=== PATIENT | male | born 1960 | race Caucasian/White ===

== ENCOUNTER 2020-08-01 14:41 | Emergency (ER) | payer MEDICARE, SELFPAY ==
[2020-08-01 14:53] VITALS: BP 112/74; PULSE 65; RESP 18; TEMP 36.7; O2SAT 97
[2020-08-01 14:56] VITALS: BP 112/74; PULSE 65; RESP 18; TEMP 36.7; O2SAT 97
--- NOTE | 2020-08-01 15:20 | ED.LOWEXIN ---
HPI - Extremity Injury (Lower) General Chief Complaint: Extremity Injury, Lower Stated Complaint: rt lower leg laceration Time Seen by Provider: 08/01/20 15:16 Source: patient and family Mode of arrival: ambulatory Limitations: no limitations History of Present Illness HPI Narrative: 60 years old white male presents with laceration at the right lower leg, 5 hours prior to arrival to the emergency room. Patient had a tetanus shot less than 5 years ago. Patient denies other injuries. Patient got injured by a trailer tail light while working on it. Related Data Allergies Allergy/AdvReac Type Severity Reaction Status Date / Time No Known Allergies Allergy Verified 08/01/20 14:56 Review of Systems Review of Systems: Narrative: CONSTITUTIONAL: Denies fever, chills, or sweats. EYES: Denies visual changes, redness, or discharge. ENT: Denies rhinorrhea, congestion, sore throat, or otalgia. CARDIOVASCULAR: Denies chest pain, palpitations, or edema. RESPIRATORY: Denies cough or dyspnea. GASTROINTESTINAL: Denies abdominal pain, nausea, vomiting, or diarrhea. GENITOURINARY: Denies dysuria or hematuria. SKIN: Denies rash or itching. MUSCULOSKELETAL: Denies back pain, joint pain, or myalgia. NEUROLOGIC: Denies headache, numbness, or weakness. PSYCHIATRIC: Denies anxiety or depression. [facility] Social History Social History Gender identity (if verbalized by the patient): Male Sexual Orientation (if Verbalized by the Patient): Straight or Heterosexual Exam Narrative: Exam Narrative: General appearance: Well-developed, well-nourished Skin: Normal color right lower leg showed skin tear/skin avulsion at the lateral side of right lower leg. No active bleeding. No other injuries. Head: Normocephalic, nontraumatic Eyes: Clear conjunctiva ENT: Oropharynx normal, ears normal, nose normal Neck: Supple, nontender Chest and respiratory: Airway patent, no respiratory distress, no accessory muscle use Heart: Regular rate/rhythm Abdomen: Soft, nontender, no organomegaly, quiet bowel sounds Vascular: Normal peripheral pulses, normal capillary refill. Musculoskeletal: Normal range of motion, nontender back Neurologic: Alert and oriented ?3, [employer] is normal as tested, no gross motor deficit Course Course Emergency Course: Improving Vital Signs Vital signs: Vital Signs Temperature 36.7 C 08/01/20 14:53 Pulse Rate 65 08/01/20 14:53 Respiratory Rate 18 08/01/20 14:53 Blood Pressure 112/74 08/01/20 14:53 Pulse Oximetry 97 08/01/20 14:53 Temperature 36.7 C 08/01/20 14:56 Pulse Rate 65 08/01/20 14:56 Respiratory Rate 18 08/01/20 14:56 Blood Pressure 112/74 08/01/20 14:56 Pulse Oximetry 97 08/01/20 14:56 Procedures Laceration Laceration 1: Date: 08/01/20 Time: 16:58 Site: lower extremity Side (If applicable): right Size (cm): 5 Description: flap and clean Depth: simple, single layer Local Anesthetic: lidocaine 1% and with epi Amount of anesthesia used (mL): 4 Pre-repair: wound explored ====== Skin Level ====== Skin layer closed with: steri strips Size (cm): 5-0 ====== Subcutaneous Layer ====== ====== Muscle Layer ====== ====== Tendon Layer ====== MDM - Extremity Injury (Lower) MDM Narrative Medical decision making narrative: Right lower extremity laceration, possible stitches versus Steri-Strips. Further plan to follow Critical Care Time Critical Care Time Critical Care Time: No Discharge Plan Discharge Clinical Impression: Avulsion of skin of right lower leg P
== END 2020-08-01 17:21 | disposition home or self-care (01) ==
PROVIDERS: Emergency Provider Emergency Medicine; PCP Physician Assistant
DX: S81.801A Unspecified open wound, right lower leg, initial encounter (principal); X58.XXXA Exposure to other specified factors, initial encounter
CPT/HCPCS: 99282

== ENCOUNTER 2022-01-08 16:59 | Emergency (ER) | payer MEDICARE, SELFPAY ==
[2022-01-08 17:19] VITALS: BP 102/66; PULSE 70; RESP 16; O2SAT 98
[2022-01-08] MEDS: FLUORESCEIN SOD 1 MG/STRIP (18:44)
[2022-01-08] MEDS: TETRACAINE HCL 0.5% OPHTH SOLN 4 ML BTL 1 DROP (18:45)
[2022-01-08] MEDS: DACRIOSE EYE IRRIGATION 118 ML BOTTLE (18:45)
--- NOTE | 2022-01-08 18:46 | ED.EYEPROB ---
HPI - Eye Problem General Chief complaint: Eye Problems Stated complaint: right eye pain x 3 days Time Seen by Provider: 01/08/22 17:54 Source: patient Mode of arrival: ambulatory Limitations: no limitations History of Present Illness HPI Narrative: 61-year-old with a history of COPD on steroid therapy here with complaints of left eye pain and irritation for last few days. States that he has been tearing constantly for past 1 day. He denies any trauma . 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 He states that there is foreign body sensation chief complaint: eye pain Onset (ago): day(s) (2) Duration: constant Location: right eye Eye Symptoms: burning and foreign body sensation Place: home Mechanism: none Severity: mild Associated symptoms: none Related Data Allergies Allergy/AdvReac Type Severity Reaction Status Date / Time No Known Allergies Allergy Verified 08/01/20 14:56 Review of Systems Review of Systems: All systems reviewed & are unremarkable except as noted in HPI and below Constitutional: Constitutional: Reports no additional constitutional complaints Eyes: Eyes: Reports as per HPI ENT: Reports system reviewed and no additional complaints, except as documented Cardiovascular: Cardiovascular: Reports no additional cardiovascular complaints Respiratory: Respiratory: Reports no additional respiratory complaints Gastrointestinal: Gastrointestinal: Reports no additional gastrointestinal complaints Musculoskeletal: Musculoskeletal: Reports no additional musculoskeletal complaints PMFSH Social History Social History Gender identity (if verbalized by the patient): Male Sexual Orientation (if Verbalized by the Patient): Straight or Heterosexual Exam Narrative: GENERAL: Well-appearing, well-nourished, and in no acute distress. HEAD: Normocephalic, atraumatic. EYES: PERRLA and EOMI. Fluorescein uptake in the right cornea.. NECK: Supple. CHEST: Clear to auscultation. No respiratory distress. HEART: Regular rate and rhythm. No murmur heard. Normal peripheral pulses. EXTREMITIES: Normal range of motion. No edema. SKIN: Warm, dry, no rash. NEURO: No focal deficits. Alert and oriented x3. PSYCH: Normal mood and affect. Course Course Emergency Course: No significant fluorescein uptake on the cornea the right eye most likely from dry eyes. Advised him to use antibiotic for few days and also recommended to use refresh eyedrops every 6 hours, follow-up with ophthalmology. Vital Signs Vital signs: Vital Signs Pulse Rate 70 01/08/22 17:19 Respiratory Rate 16 01/08/22 17:19 Blood Pressure 102/66 01/08/22 17:19 Pulse Oximetry 98 01/08/22 17:19 Pulse Rate 70 01/08/22 17:19 Respiratory Rate 16 01/08/22 17:19 Blood Pressure 102/66 01/08/22 17:19 Pulse Oximetry 98 01/08/22 17:19 Discharge Plan Discharge Clinical Impression: Corneal abrasion Patient Disposition: Home, Self-Care Condition: Stable Instructions: Antibiotic Form Prescriptions: New tobramycin 0.3 % drops 2 drp RIGHT EYE Q4H Qty: 5 RF: 0 Follow-up/Referrals: Jaden,Natalia Troncoso PA-C [Primary Care Provider] - Time of Disposition: 18:55
== END 2022-01-08 19:08 | disposition home or self-care (01) ==
LOC: ANHED 18:53
PROVIDERS: Emergency Provider Family Medicine; PCP Physician Assistant
DX: S05.01XA Injury of conjunctiva and corneal abrasion without foreign body, right eye, initial encounter (principal); X58.XXXA Exposure to other specified factors, initial encounter
CPT/HCPCS: 99283; A9270